=== PATIENT | female | born 2000 | race Two or more races ===

== ENCOUNTER 2021-01-01 23:29 | Emergency (ER) | payer MEDICAID, OTHER ==
[~2021-01-01] VITALS: Ht 160 cm; Wt 90.7 kg
[2021-01-02] VITALS: BP 121/68
[2021-01-02 00:11] LABS: Basophils # (auto) 0.1 10 ^3/uL (0-0.2); Basophils % (auto) 0.7 % (0.0-2.0); Eosinophils # (auto) 0.1 10 ^3/uL (0-0.8); Eosinophils % (auto) 1.8 % (0.0-7.0); Hematocrit 38.1 % (36.0-46.0); Lymphocytes % (auto) 38.1 % (10.0-50.0); Mean Corpuscular Hemoglobin 29.3 pg (28.0-32.0); Mean Corpuscular Hgb Conc. 34.2 g/dL (32.0-36.0); Mean Corpuscular Volume 85.7 fL (80.0-100.0); Monocytes # (auto) 0.5 10 ^3/uL (0-1.3); Monocytes % (auto) 5.8 % (0.0-12.0); Neutrophils # (auto) 4.2 10 ^3/uL (1.6-8.6); Neutrophils % (auto) 53.6 % (37.0-80.0); Nucleated Red Blood Cells % 0.2 %; Red Blood Cells 4.45 10^6/uL (4.0-5.20); Red Cell Distribution Width 14.8 % (11.8-14.3); White Blood Cell 7.8 10^3/uL (4.4-10.8)
[2021-01-02 00:26] LABS: INR 1.06 (0.9-1.15)
[2021-01-02 00:34] LABS: Alanine Aminotransferase 29 U/L (13-56); Albumin 4.2 g/dL (3.4-5.0); Anion Gap 10 (5-15); Aspartate Aminotransferase 18 U/L (15-37); BUN/Creatinine Ratio 13.5; Blood Urea Nitrogen 10 mg/dL (7-18); Calcium 8.6 mg/dL (8.5-10.1); Carbon Dioxide 24 mmol/L (21-32); Chloride 106 mmol/L (98-107); GFR African American 127 mL/min; GFR Non-African American 105 mL/min; Glucose 92 mg/dL (74-106); Magnesium 2.3 mg/dL (1.6-2.6); Potassium 3.6 mmol/L (3.5-5.1); Sodium 140 mmol/L (136-145)
[2021-01-02 00:39] LABS: Alkaline Phosphatase 94 U/L (45-117); Bilirubin, Total 0.4 mg/dL (0.2-1.0); Total Protein 7.8 g/dL (6.4-8.2)
[2021-01-02 01:04] LABS: Urine Bacteria FEW /hpf (None Seen); Urine Blood Negative /uL (Negative); Urine Hyaline Cast MOD /lpf (0 - 2); Urine Mucus MODERATE (None Seen); Urine Specific Gravity 1.033 (1.001-1.035); Urine WBC 4 /hpf (0 - 5)
== END 2021-01-02 02:01 | disposition home or self-care (01) ==
LOC: ER 23:38
DX: F15.10 Other stimulant abuse, uncomplicated (principal); R06.09 Other forms of dyspnea; R07.89 Other chest pain
CPT/HCPCS: 36415; 71045; 80053; 81001; 81025; 83735; 84484; 85025; 85610